=== PATIENT | female | born 1995 | race Caucasian/White ===

== ENCOUNTER 2017-12-22 03:15 | Outpatient (CLI) | payer OTHER ==
[2017-12-22 04:00] VITALS: BP 132/82; PULSE 78; RESP 16; TEMP 98.1
--- NOTE | 2017-12-22 06:38 | P.MSEPDOC ---
Presenting Problems - Arrival Data Date of Arrival on Unit: 12/22/17 Time of Arrival on Unit: 03:15 Mode of Transport: Wheelchair - Complaint OB-Reason for Admission/Chief Complaint: Acute Nausea/Vomiting Comment: pt complains of stomach pain and cramping, diarrhea and vomiting, pt is seen in [place] by Dr Olivas Medical History - Information : 1 Para: 0 Term: 0 : 0 Abortions: Spontaneous or Elective: 0 Number of Living Children: 0 - Gestational Age Gestational Age by INOCENCIO (wks/days): 28 Weeks and 3 Days Review of Systems - Review of Systems Constitutional: No problems Breast: No problems ENT: No problems Cardiovascular: No problems Respiratory: No problems Gastrointestinal: No problems Genitourinary: No problems Musculoskeletal: No problems Neurological: No problems Skin: No problems Vital Signs - Temperature Temperature: 98.1 F Temperature Source: Oral - Pulse Right Sitting Brachial Pulse Rate: 78 Pulse Assessment Method: Automatic Cuff - Respirations Respiratory Rate: 16 O2 Sat by Pulse Oximetry: 98 - Blood Pressure Right Arm Blood Pressure: 132/82 Blood Pressure Mean: 98 Blood Pressure Source: Automatic Cuff Medical Screen Scoring (Pre) - Cervical Exam Dilation: Exam Deferred Effacement: Exam Deferred Membranes: Intact - Uterine Contractions Frequency: N/A Duration: N/A Intensity: N/A - Maternal Vital Signs Maternal Temperature: N/A Maternal Blood Pressure: N/A Signs of Preeclampsia: N/A Maternal Respirations: N/A - Pain Assessment Pain Location and Character: Abdomen Pain Scale Used: Numeric (1 - 10) Pain Intensity: 7 Pain Management Goal: 2 Pain Description: *Acute, Cramping Pain Radiation Location: none Pain Frequency: Intermittent Pain Duration: 2 Pain Duration Units: Hours Pain Behavior: Facial Grimacing, Guarding Pain Aggravating Factors: None - Maternal Trauma Maternal Trauma: N/A - Assessment Baseline FHR: 130 Heart Rate - NICHD Category: Category I (Normal) = 0 NST: Reactive Position: N/A Station: N/A - Total Score Total Score (Pre): 0 - Level of Risk Level of Risk: Low (0-5) Physician Notification (Pre) - Physician Notified Physician Notified Date: 12/22/17 Physician Notified Time: 03:41 Physician/Practitioner Notifed:: Sadaf Spoke With: Sadaf New Order Received: Yes Disposition - Disposition OB Disposition: Discharge to home, Written follow up instructions reviewed Discharge Date: 12/22/17 Discharge Time: 03:45 I agree with the RN Medical Screening Exam: Yes Risk & Benefit of care provided described in d/c instruction: Yes Diagnosis: NONINFECTIVE GASTROENTERITIS AND COLITIS, UNSPECIFIED
== END 2017-12-22 03:45 | disposition home or self-care (01) ==
LOC: FBPOP 03:15
PROVIDERS: ATTEND Obstetrics & Gynecology
DX: O99.613 Diseases of the digestive system complicating pregnancy, third trimester (principal); K52.9 Noninfective gastroenteritis and colitis, unspecified; Z3A.28 28 weeks gestation of pregnancy
CPT/HCPCS: 59025; 99213

== ENCOUNTER 2018-01-13 20:40 | Outpatient (CLI) | payer OTHER ==
[2018-01-13 21:42] LABS: Basophils % (A) 0 %; Eosinophils # (A) 0.1 k/uL (0-0.7); Eosinophils % (A) 1 %; HCT 31.6 % (34.0-46.0); HGB 10.7 gm/dL (11.4-16.0); Lymphocytes # (A) 1.8 k/uL (1.0-4.8); Lymphocytes % (A) 20 %; MCH 29.9 pg (25.0-35.0); MCHC 33.7 g/dL (31.0-37.0); MCV 88.7 fL (80.0-100.0); Mean Platelet Volume 6.9; Monocytes # (A) 0.4 k/uL (0-1.0); Monocytes % (A) 4 %; Neutrophils # (A) 6.5 k/uL (1.3-7.7); Neutrophils % (A) 73 %; Platelet Count 298 k/uL (150-450); RBC 3.57 m/uL (3.80-5.40); RDW 13.1 % (11.5-15.5); WBC 8.9 k/uL (3.8-10.6)
[2018-01-13 21:49] LABS: ALT 20 U/L (9-52); AST 17 U/L (14-36); Blood Urea Nitrogen 4 mg/dL (7-17); LDH 332 U/L (313-618); Magnesium 1.7 mg/dL (1.6-2.3); Uric Acid 4.3 mg/dL (3.7-7.4)
[2018-01-13 22:01] VITALS: BP 140/100; PULSE 108; RESP 16; TEMP 96.8
[2018-01-13 22:02] LABS: Appearance,Urine Clear (Clear); Bacteria,Urine Rare /hpf; Bilirubin,Urine Negative (Negative); Blood,Urine Negative (Negative); Color,Urine Yellow; Glucose,Urine (UA) Negative (Negative); Ketones,Urine 1+ (Negative); Leukocyte Esterase,Urine Small (Negative); Mucus,Urine Rare /hpf; Nitrite,Urine Negative (Negative); PH, Urine 6.5 (5.0-8.0); Protein,Urine Negative (Negative); RBC,Urine <1 /hpf (0-5); Specific Gravity,Urine 1.007 (1.001-1.035); Squamous Epithelial Cell,Urine 1 /hpf (0-4); Urobilinogen,Urine <2.0 mg/dL (<2.0); WBC,Urine 2 /hpf (0-5)
[2018-01-13 22:22] LABS: Partial Thromboplastin Time 23.8 sec (22.0-30.0); Prothrombin Time 9.9 sec (9.0-12.0)
--- NOTE | 2018-02-04 00:16 | P.MSEPDOC ---
Presenting Problems - Arrival Data Date of Arrival on Unit: 01/13/18 Time of Arrival on Unit: 20:49 Mode of Transport: Ambulatory - Complaint OB-Reason for Admission/Chief Complaint: Other Comment: her doctor told her to go to the ER to check for dehydration. Medical History - Information : 1 Para: 0 - Gestational Age Gestational Age by INOCENCIO (wks/days): 31 Weeks and 4 Days - History Comment: DOM, pnc in [place], Dr Iraheta Review of Systems - Review of Systems Constitutional: No problems Breast: No problems ENT: No problems Cardiovascular: No problems Respiratory: No problems Gastrointestinal: Diarrhea Genitourinary: No problems Musculoskeletal: No problems Neurological: No problems Skin: No problems Vital Signs - Temperature Temperature: 96.8 F Temperature Source: Temporal Artery Scan - Pulse Right Sitting Brachial Pulse Rate: 108 Pulse Assessment Method: Automatic Cuff - Respirations Respiratory Rate: 16 Oxygen Delivery Method: Room Air O2 Sat by Pulse Oximetry: 98 - Blood Pressure Right Arm Sitting Blood Pressure: 140/100 Blood Pressure Mean: 113 Blood Pressure Source: Automatic Cuff Medical Screen Scoring (Pre) - Cervical Exam Dilation: Exam Deferred Effacement: Exam Deferred Membranes: Intact - Uterine Contractions Frequency: N/A Duration: N/A Intensity: N/A - Maternal Vital Signs Maternal Temperature: N/A Maternal Blood Pressure: Diastolic > 89 = 1 Signs of Preeclampsia: N/A Maternal Respirations: N/A - Pain Assessment Pain Location and Character: Abdomen Pain Scale Used: Numeric (1 - 10) Pain Intensity: 1 Pain Description: Cramping Pain Radiation Location: 0 Pain Frequency: Occasional Pain Duration: 0 Pain Duration Units: Minutes Pain Behavior: None Exhibited Effects of Pain: 0 Pain Aggravating Factors: None - Maternal Trauma Maternal Trauma: N/A - Assessment Baseline FHR: 140 Heart Rate - NICHD Category: Category I (Normal) = 0 NST: Reactive Position: N/A Station: N/A - Total Score Total Score (Pre): 1 - Level of Risk Level of Risk: N/A Physician Notification (Pre) - Physician Notified Physician Notified Date: 01/13/18 Physician Notified Time: 20:50 Physician/Practitioner Notifed:: Dr Rogers Spoke With: Dr Rogers New Order Received: Yes (u/a, pih labs, amnisure) Disposition - Disposition OB Disposition: Discharge to home Discharge Date: 01/13/18 Discharge Time: 22:21 I agree with the RN Medical Screening Exam: No Physician's MSE Comment: Incomplete documentation Risk & Benefit of care provided described in d/c instruction: No Diagnosis: OTHER SPECIFIED COMPLICATIONS OF LABOR AND DELIVERY
== END 2018-01-13 22:21 | disposition home or self-care (01) ==
LOC: FBPOP 20:40
PROVIDERS: ATTEND Obstetrics & Gynecology
DX: O75.89 Other specified complications of labor and delivery (principal); Z3A.31 31 weeks gestation of pregnancy
CPT/HCPCS: 59025; 81001; 82565; 83615; 83735; 84112; 84450; 84460; 84520; 84550; 85025; 85384; 85610; 85730; 99213